=== PATIENT | female | born 1955 | race Hispanic/Latino ===

== ENCOUNTER 2018-04-10 08:04 | Emergency (ER) | payer OTHER ==
[2018-04-10] MEDS ORDERED: Sodium Chloride 0.9% 500 ML IV STA (08:35)
--- NOTE | 2018-04-10 08:48 | ED PDOC ---
History of Present Illness History of Present Illness: 62 y/o female with no significant PMHx presents to the ED for evaluation of flu- like symptoms, onset three days ago. Patient reports of developing myalgia, sore throat, chills, decreased appetite and a cough, productive of yellow sputum over the last three days. Patient reports of taking Aspirin with some relief. Patient states she has received her flu shot in January. Denies difficulty swallowing, nausea, vomiting and abdominal pain. PMD: Non H Provider HPI: Influenza Time Seen by Provider: 04/10/18 08:24 Chief Complaint: Flu-like Symptoms Chief Complaint (Provider): Flu-like Symptoms History Per: Patient Exam Limitations: no limitations Have you had recent travel within the past 21 days to any of: No Onset/Duration Of Symptoms: Days (x3) Symptoms include: sore throat, cough. denies: difficulty breathing Sick Contacts (Context): None Past Medical History Reviewed: Historical Data, Nursing Documentation, Vital Signs Vital Signs: Last Vital Signs Temp 100.8 F H 04/10/18 08:23 Pulse 92 H 04/10/18 08:23 Resp 20 04/10/18 08:23 BP 108/59 L 04/10/18 08:23 Pulse Ox 97 04/10/18 08:23 - Medical History PMH: No Chronic Diseases - Surgical History Surgical History: No Surg Hx - Family History Family History: States: No Known Family Hx - Social History Current smoker - smoking cessation education provided: No Alcohol: None Drugs: Denies - Immunization History Hx Influenza Vaccination: Yes - Home Medications Home Medications: Ambulatory Orders Medication Instructions Recorded Guaifenesin/Dextromethorphan 10 ml PO Q6 PRN #240 ml 04/10/18 [Adult Cough Formula Dm Max Liq] Oseltamivir Cap [Tamiflu] 75 mg PO BID #10 cap 04/10/18 Oseltamivir Cap [Tamiflu] 75 mg PO BID #10 cap 04/10/18 guaiFENesin/Dextromethorphan 10 ml PO Q6H PRN #1 bottle 04/10/18 [guaiFENesin-DM] - Allergies Allergies/Adverse Reactions: Allergies Allergy/AdvReac Type Severity Reaction Status Date / Time No Known Allergies Allergy Verified 04/10/18 08:26 Review of Systems ROS Statement: Except As Marked, All Systems Reviewed And Found Negative Constitutional: Positive for: Chills, Other (myalgia) ENT: Positive for: Throat Pain. Negative for: Throat Swelling Respiratory: Positive for: Cough Gastrointestinal: Positive for: Other (decreased appetite). Negative for: Nausea, Vomiting, Abdominal Pain Physical Exam - Reviewed Nursing Documentation Reviewed: Yes Vital Signs Reviewed: Yes - Physical Exam Appears: Positive for: No Acute Distress Head Exam: Positive for: ATRAUMATIC, NORMOCEPHALIC Skin: Positive for: Normal Color, Warm, Dry Eye Exam: Positive for: Normal appearance, EOMI, PERRL ENT: Positive for: Normal ENT Inspection, Pharynx Is (clear), TM Is/Are (are normal) Neck: Positive for: Normal, Painless ROM Cardiovascular/Chest: Positive for: Regular Rate, Rhythm. Negative for: Murmur Respiratory: Positive for: Normal Breath Sounds. Negative for: Respiratory Distress Gastrointestinal/Abdominal: Positive for: Normal Exam, Soft. Negative for: Tenderness Back: Positive for: Normal Inspection. Negative for: L CVA Tenderness, R CVA Tenderness Extremity: Positive for: Normal ROM. Negative for: Deformity Neurologic/Psych: Positive for: Alert, Oriented (x3). Negative for: Motor/Sensory Deficits Medical Decision Making Medical Decision Making: Time: 0837 Impression: Flu vs viral illness Plan: -- VBG Shock Panel -- EKG -- CMP -- ED Urine Dipstick -- CBC with Differentials -- CXT Two Views -- Motrin 600 mg PO -- Sodium Chloride 0.9% IV 500 mls/hr -- Tylenol 650 mg PO -- Blood Culture -- Influenza A B -- Rapid Strep Group A Antigen -- Urinalysis Time: 1051 CXR RESULTS FINDINGS: LUNGS: Lung sanon appear hyperinflated; findings may represent sequela of Lyme chronic COPD minimal linear atelectasis and/or scarring changes seen both lung bases left greater than right. Minor biapical pleural thickening PLEURA: No significant pleural effusion identified. No pneumothorax apparent. CARDIOVASCULAR: No aortic atherosclerotic calcification present. Normal cardiac size. No pulmonary vascular congestion. OSSEOUS STRUCTURES: No significant abnormalities. VISUALIZED UPPER ABDOMEN: Normal. OTHER FINDINGS: None. IMPRESSION: Hyperinflation; findings suggest underlying chronic COPD. Minimal linear atelectasis and/or scarring changes seen both lung bases left greater than right Scribe Attestation: Documented by Massimo Guadarrama, acting as a scribe for Leesa Aguilera MD. Provider Scribe Attestation: All medical record entries made by the Scribe were at my direction and persona lly dictated by me. I have reviewed the chart and agree that the record accurately reflects my personal performance of the history, physical exam, medical decision making, and the department course for this patient. I have also personally directed, reviewed, and agree with the discharge instructions and disposition. - Laboratory Results Result Diagrams: 04/10/18 09:00 04/10/18 09:00 - ECG O2 Sat by Pulse Oximetry: 97 Disposition - Clinical Impression Clinical Impression: Influenza-like symptoms - Disposition Referrals: Carlos Chan MD [Staff Provider] - Disposition: Routine/Home Disposition Time: 13:53 Condition: STABLE Prescriptions: guaiFENesin/Dextromethorphan [guaiFENesin-DM] 10 ml PO Q6H PRN #1 bottle PRN Reason: Cough Guaifenesin/Dextromethorphan [Adult Cough Formula Dm Max Liq] 10 ml PO Q6 PRN #240 ml PRN Reason: Cough Oseltamivir Cap [Tamiflu] 75 mg PO BID #10 cap Oseltamivir Cap [Tamiflu] 75 mg PO BID #10 cap Instructions: Flu Forms: [facility] (Uzbek)
[2018-04-10 09:03] LABS: SQUAMOUS EPITHIAL 1 /hpf (0-5); URINE BILIRUBIN NEGATIVE (NEGATIVE); URINE BLOOD NEGATIVE (NEGATIVE); URINE CLARITY SLIGHTY-CLOUDY (Clear); URINE COLOR YELLOW (YELLOW); URINE GLUCOSE (UA) NEG (NEGATIVE); URINE LEUKOCYTE ESTERASE NEG Leu/uL (Negative); URINE PROTEIN NEGATIVE (NEGATIVE)
[2018-04-10 09:20] LABS: VENOUS BLOOD GAS BASE EXCESS 3.4 mmol/L (0.0-2.0); VENOUS BLOOD GAS PCO2 47 mmHg (40-60); VENOUS BLOOD GAS PO2 21 mm/Hg (30-55)
[2018-04-10 09:23] LABS: BASO % 0.4 % (0.0-2.0); EOS % 0.2 % (0.0-4.0); HEMOGLOBIN 14.8 g/dL (12.0-16.0); LYMPH # 0.4 K/uL (1.0-4.3); LYMPH % 9.3 % (20.0-40.0); MEAN CORPUSCULAR HEMOGLOBIN 30.9 pg (27.0-31.0); MEAN CORPUSCULAR HGB CONC 32.8 g/dL (33.0-37.0); MEAN PLATELET VOLUME 9.2 fl (7.2-11.7); MONO # 0.5 K/uL (0.0-0.8); MONO % 11.1 % (0.0-10.0); NEUT # 3.8 K/uL (1.8-7.0); NRBC % 0.2 % (0.0-0.0); PLATELET COUNT 158 K/uL (130-400); RED CELL DISTRIBUTION WIDTH 13.2 % (11.5-14.5); WHITE BLOOD COUNT 4.8 K/uL (4.8-10.8)
[2018-04-10 09:29] LABS: ALB/GLOB RATIO 1.5 (1.0-2.1); ALBUMIN 4.2 g/dL (3.5-5.0); ALT/SGPT 19 U/L (9-52); AST/SGOT 26 U/L (14-36); BLOOD UREA NITROGEN 9 mg/dl (7-17); CALCIUM 8.7 mg/dL (8.4-10.2); GFR NON-AFRICAN AMERICAN > 60
[2018-04-10 10:36] LABS: BANDS 2 % (0-2); LYMPHOCYTE 9 % (20-50); MONOCYTE 11 % (0-10); NEUTROPHIL 78 % (42-75); TOTAL CELLS COUNTED 100
--- NOTE | 2018-04-10 10:55 | RAD ---
Date of service: 04/10/2018 HISTORY: Cough COMPARISON: No prior. TECHNIQUE: Chest PA and lateral FINDINGS: LUNGS: Lung sanon appear hyperinflated; findings may represent sequela of Lyme chronic COPD minimal linear atelectasis and/or scarring changes seen both lung bases left greater than right. Minor biapical pleural thickening PLEURA: No significant pleural effusion identified. No pneumothorax apparent. CARDIOVASCULAR: No aortic atherosclerotic calcification present. Normal cardiac size. No pulmonary vascular congestion. OSSEOUS STRUCTURES: No significant abnormalities. VISUALIZED UPPER ABDOMEN: Normal. OTHER FINDINGS: None. IMPRESSION: Hyperinflation; findings suggest underlying chronic COPD. Minimal linear atelectasis and/or scarring changes seen both lung bases left greater than right
[2018-04-10] MEDS ORDERED: Sodium Chloride 0.9% 1,000 ML IV STA (10:58)
[2018-04-10 11:44] LABS: PLATELET ESTIMATE NORMAL (NORMAL)
[2018-04-10] MEDS ORDERED: guaiFENesin DM 100 mg-10 mg/5 ml UD PO STA (12:08)
[2018-04-10] MEDS ORDERED: Sodium Chloride 0.9% 1,000 ML IV SCH (12:30)
[2018-04-10 13:38] VITALS: BP 119/52; PULSE 67; RESP 19; TEMP 98.8
--- NOTE | 2018-04-10 22:07 | CARD ---
APPROVED REPORT Date of service: 04/10/2018 EKG Measurement Heart [id number] <Conclusion> Normal sinus rhythm Nonspecific ST abnormality Abnormal ECG
[2018-04-13 22:45] VITALS: O2SAT 97
== END 2018-04-10 14:20 | disposition home or self-care (01) ==
LOC: H.ER 08:04
DX: J11.1 Influenza due to unidentified influenza virus with other respiratory manifestations (principal); M79.10 Myalgia, unspecified site
CPT/HCPCS: 71046; 80053; 81003; 82803; 85025; 87040; 87070; 87430; 87804; 93005; 96360; 96361; 99284; J7030